=== PATIENT | female | born 2000 | race Two or more races ===

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

== ENCOUNTER 2019-02-22 16:29 | Emergency (ER) | payer BC, OTHER ==
[~2019-02-22] VITALS: Ht 167.6 cm; Wt 63.5 kg
[~2019-02-22 16:29] MED LIST changes: +Flagyl500 MG PO; +Vibramycin100 MG PO
== END 2019-02-22 17:27 | disposition left against medical advice (07) ==
LOC: ER 16:29
DX: Z53.21 Procedure and treatment not carried out due to patient leaving prior to being seen by health care provider (principal)

== ENCOUNTER 2019-02-22 21:58 | Emergency (ER) | payer BC, OTHER ==
[~2019-02-22] VITALS: Ht 167.6 cm; Wt 63.5 kg
[2019-02-22 22:19] LABS: Source, Urine Clean Catch
[2019-02-22 22:29] LABS: Bilirubin, Urine Neg (Neg); Blood, Urine 5+ (Neg); Glucose Qualitative, Urine Neg (Neg); Ketones, Urine 1+ (Neg); Leukocyte Esterase, Urine 2+ (Neg); Nitrite, Urine Neg (Neg); Protein, Urine 3+ (Neg); Specific Gravity, Urine 1.025 (1.003-1.022); Urobilinogen, Urine 1+ (Normal)
[2019-02-22 22:33] LABS: Appearance, Urine Hazy (Clear); Color, Urine Brown (P-Yellow)
[2019-02-22 22:40] LABS: Bacteria Few /hpf; Red Blood Cells, Urine TNTC /hpf (0-2); Squamous Epithelial Cells Few /hpf (Few)
== END 2019-02-22 23:00 | disposition home or self-care (01) ==
LOC: ER 21:58
PROVIDERS: Emergency Medicine
DX: N93.9 Abnormal uterine and vaginal bleeding, unspecified (principal); F17.210 Nicotine dependence, cigarettes, uncomplicated
CPT/HCPCS: 81001; 81025; 87077; 87086; 87186; 99283

== ENCOUNTER → 2019-05-03 | Outpatient (CLI) | payer BC, OTHER | END | disposition home or self-care (01) | LOC: LAB EV 17:54 → LAB SHORT 17:54 | DX: N39.0 Urinary tract infection, site not specified (principal) | CPT/HCPCS: 87077; 87086; 87186 ==

== ENCOUNTER → 2019-09-08 | Outpatient (CLI) | payer OTHER ==
[~2019-09-08] MED LIST changes: +ACET325 PO; +DOCU100; +DOCU100 PO; +IBUP600 PO; +MIRALAX17 GM PO; +OXYC5 PO; +PRENATAL TABLE1 EAC2 PO
[2019-09-08 11:27] LABS: BASOPHILS ABSOLUTE AUTO 0.02 K/mm3 (0.00-0.23); BASOPHILS PERCENT AUTO 0 % (0-2); EOSINOPHILS ABSOLUTE AUTO 0.03 K/mm3 (0.00-0.68); EOSINOPHILS PERCENT AUTO 0 % (0-6); Hematocrit 32.8 % (33.0-51.0); Hemoglobin 11.6 g/dL (11.5-16.0); IMMATURE GRAN ABSOLUTE AUTO 0.04 K/mm3 (0.00-0.10); IMMATURE GRAN PERCENT AUTO 0 % (0-1); LYMPHOCYTES ABSOLUTE AUTO 1.55 K/mm3 (0.84-5.20); LYMPHOCYTES PERCENT AUTO 13 % (21-46); MONOCYTES ABSOLUTE AUTO 0.72 K/mm3 (0.16-1.47); MONOCYTES PERCENT AUTO 6 % (4-13); Mean Corpuscular HGB 29.9 pg (26.0-34.0); Mean Corpuscular HGB Conc 35.4 g/dL (31.5-36.5); Mean Corpuscular Volume 85 fL (80-100); Mean Platelet Volume 10.5 fL (9.1-12.4); NEUTROPHILS ABSOLUTE AUTO 9.47 K/mm3 (1.96-9.15); NEUTROPHILS PERCENT AUTO 80 % (41-73); Platelet Count 264 K/mm3 (150-400); RDW Coefficient Variation 13.5 % (11.7-14.2); RDW Standard Deviation 41.8 fL (35.1-46.3); Red Blood Cell Count 3.88 M/mm3 (3.80-5.20); White Blood Cell Count 11.83 K/mm3 (4.00-11.30)
[2019-09-08 11:31] LABS: Anion Gap 12 mmol/L (6-16); Blood Urea Nitrogen 6 mg/dL (8-24); Bun/Creatinine Ratio 8.8 (12.0-20.0); CO2, Blood 25 mmol/L (21-32); Calcium, Blood 8.8 mg/dL (8.5-10.1); Chloride, Blood 103 mmol/L (98-108); Creatinine, Blood 0.68 mg/dL (0.40-1.00); Glomerular Filtration Rate >60 (60-); Glucose, Blood 79 mg/dL (70-99); Potassium, Blood 3.6 mmol/L (3.5-5.5); Sodium, Blood 140 mmol/L (136-145)
== END ==
LOC: LAB EV 11:22 → LAB SHORT 11:22
PROVIDERS: Emergency Medicine
DX: N76.2 Acute vulvitis (principal); R50.9 Fever, unspecified
CPT/HCPCS: 80048; 85025; 87040

== ENCOUNTER 2019-09-13 10:10 | Observation (INO) | payer OTHER ==
[~2019-09-13] VITALS: Ht 167.6 cm; Wt 72.0 kg
[~2019-09-13 10:10] MED LIST changes: -ACET325 PO; -DOCU100; -DOCU100 PO; -IBUP600 PO; -MIRALAX17 GM PO
[2019-09-13 10:42] LABS: BASOPHILS ABSOLUTE AUTO 0.02 K/mm3 (0.00-0.23); BASOPHILS PERCENT AUTO 0 % (0-2); EOSINOPHILS ABSOLUTE AUTO 0.08 K/mm3 (0.00-0.68); EOSINOPHILS PERCENT AUTO 1 % (0-6); Hematocrit 36.2 % (33.0-51.0); Hemoglobin 11.8 g/dL (11.5-16.0); IMMATURE GRAN ABSOLUTE AUTO 0.06 K/mm3 (0.00-0.10); IMMATURE GRAN PERCENT AUTO 1 % (0-1); LYMPHOCYTES ABSOLUTE AUTO 1.76 K/mm3 (0.84-5.20); LYMPHOCYTES PERCENT AUTO 16 % (21-46); MONOCYTES ABSOLUTE AUTO 0.42 K/mm3 (0.16-1.47); MONOCYTES PERCENT AUTO 4 % (4-13); Mean Corpuscular HGB 28.5 pg (26.0-34.0); Mean Corpuscular HGB Conc 32.6 g/dL (31.5-36.5); Mean Corpuscular Volume 87 fL (80-100); Mean Platelet Volume 9.7 fL (9.1-12.4); NEUTROPHILS ABSOLUTE AUTO 8.97 K/mm3 (1.96-9.15); NEUTROPHILS PERCENT AUTO 79 % (41-73); Platelet Count 372 K/mm3 (150-400); RDW Coefficient Variation 13.2 % (11.7-14.2); RDW Standard Deviation 42.6 fL (35.1-46.3); Red Blood Cell Count 4.14 M/mm3 (3.80-5.20); White Blood Cell Count 11.31 K/mm3 (4.00-11.30)
[2019-09-13 10:58] LABS: Alanine Aminotransfer (ALT/SGP 14 U/L (12-78); Albumin, Blood 2.4 g/dL (3.4-5.0); Albumin/Globulin Ratio 0.6 (0.8-1.8); Alk Phos 93 U/L (50-136); Anion Gap 5 mmol/L (6-16); Aspartate Aminotrans (AST/SGOT 13 U/L (12-37); Bilirubin, Total 0.2 mg/dL (0.1-1.0); Blood Urea Nitrogen 4 mg/dL (8-24); Bun/Creatinine Ratio 8.5 (12.0-20.0); CO2, Blood 26 mmol/L (21-32); Calcium, Blood 8.6 mg/dL (8.5-10.1); Chloride, Blood 108 mmol/L (98-108); Creatinine, Blood 0.47 mg/dL (0.40-1.00); Globulin, Blood 4.2 g/dL (2.2-4.0); Glomerular Filtration Rate >60 (60-); Glucose, Blood 83 mg/dL (70-99); Potassium, Blood 3.9 mmol/L (3.5-5.5); Sodium, Blood 139 mmol/L (136-145); Total Protein, Blood 6.6 g/dL (6.4-8.2)
[2019-09-13 11:05] LABS: International Normalized Ratio 0.94; Prothrombin Time Results 10.1 Sec (9.7-11.5)
--- NOTE | 2019-09-13 18:23 | NUR ---
pt arrived to room 228 from [facility] pt is s/p labia I&D pt has gauze with underware c/d/i pt stated no pain or nausea at this time pt had a spinal can feel touch to her legs but reports that they are numb reg tray ordered for pt
--- NOTE | 2019-09-13 23:22 | NUR ---
I CALLLED PHYSICIAN REGARDING PT C/O INCREASED PAIN AND STATES ULICES 5 MG WILL NOT HELP.PT IS REQUESTING SUBLIMAZE IV. I ALSO NOTIFIED DR VIDAL THAT PHARMACIST REPORTS TORADOL NOT SAFE FOR USE IN 20 WEEK . WELL DIFLUCAN NOT SAFE EITHER. I NOTIFIED DR THAT I HELD DIFLUCAN. ORDERED TO HOLD TORADOL TONIGHT UNTIL ROUNDS IN AM AND CAN BE DISCUSSED THEN.I RECEIVED ORDERS FOR 3 TOTAL DOSES OF SUBLIMAZE.
--- NOTE | 2019-09-14 06:28 | NUR ---
SUMMARY VERB FENTANYL EFFECTIVE FOR PAIN CONTROL.REPOSITIONS WITH ASSIST. REQUIRES MODERATE ASSIST DUE TO FEARS AND NOT WANTING TO MOVE. DISCUSSED IMPORTANCE TO REPOSITION AND MOVE LEGS,DO ANKLE EX AND I.S. Q1-2 W/A. SPINAL SITE CLEAR. NO C/O NAUSEA. FEELS PRESSURE OF CATHETER.ADVISED WHEN SHE IS AMBULATING BUCIO WILL BE DCD. ENC OOB.
[2019-09-14] MEDS ORDERED: ACET325 PO ×2 (13:01)
[2019-09-14] MEDS ORDERED: DOCU100 ×2 (13:01)
[2019-09-14] MEDS ORDERED: DOCU100 PO ×2 (13:02)
[2019-09-14] MEDS ORDERED: MIRALAX17 GM PO ×2 (13:03)
[2019-09-14] MEDS ORDERED: IBUP600 PO ×2 (13:04)
--- NOTE | 2019-09-14 13:29 | NUR ---
DISCHARGED REVIEWED DC INSTRUCTIONS W/PT; VERBALIZED UNDERSTANDING. DC'D IV, CATHETER INTACT. PT LEFT UNIT BY AMBULATION PER HER REQUEST W/POSSESSIONS AND DC INSTRUCTIONS IN HAND.
== END 2019-09-14 13:17 | disposition home or self-care (01) ==
LOC: ER 10:10 → SURS 16:14
PROVIDERS: Physician Assistant; ADMIT Obstetrics & Gynecology
DX: O23.592 Infection of other part of genital tract in pregnancy, second trimester (principal); Z3A.15 15 weeks gestation of pregnancy; O99.612 Diseases of the digestive system complicating pregnancy, second trimester; K59.00 Constipation, unspecified; O23.12 Infections of bladder in pregnancy, second trimester; Z87.891 Personal history of nicotine dependence; Z88.1 Allergy status to other antibiotic agents; Z79.899 Other long term (current) drug therapy
CPT/HCPCS: 36415; 80053; 83605; 85025; 85610; 85730; 86140; 87040; 96361; 96374; 96375; 96376; 99284-25; J0690; J1885; J2250; J2405; J2704; J3010; J7120

== ENCOUNTER 2020-03-08 18:28 | Inpatient (IN) | payer OTHER ==
[~2020-03-08] VITALS: Ht 167.6 cm; Wt 96.4 kg
[~2020-03-08 18:28] MED LIST changes: +ACET325 PO; +DOCU100; +DOCU100 PO; +IBUP600 PO; +MIRALAX17 GM PO
[2020-03-08] MEDS ORDERED: FERSU300 PO (21:04)
[2020-03-08] MEDS ORDERED: PRENATAL TABLE1 EAC2 PO (21:05)
[2020-03-08 21:07] LABS: Influenza A, PCR Negative (NEGATIVE); Influenza B, PCR Negative (NEGATIVE); Resp Syncytial Virus, PCR Negative (NEGATIVE); SARS-Cov-2 (COVID-19) PCR, MMC Negative (NEGATIVE)
[2020-03-08 21:17] LABS: BASOPHILS ABSOLUTE AUTO 0.05 K/mm3 (0.00-0.23); BASOPHILS PERCENT AUTO 0 % (0-2); EOSINOPHILS ABSOLUTE AUTO 0.06 K/mm3 (0.00-0.68); EOSINOPHILS PERCENT AUTO 0 % (0-6); Hematocrit 41.4 % (33.0-51.0); Hemoglobin 13.7 g/dL (11.5-16.0); IMMATURE GRAN ABSOLUTE AUTO 0.06 K/mm3 (0.00-0.10); IMMATURE GRAN PERCENT AUTO 0 % (0-1); LYMPHOCYTES ABSOLUTE AUTO 3.19 K/mm3 (0.84-5.20); LYMPHOCYTES PERCENT AUTO 19 % (21-46); MONOCYTES PERCENT AUTO 5 % (4-13); Mean Corpuscular HGB Conc 33.1 g/dL (31.5-36.5); Mean Corpuscular Volume 85 fL (80-100); Mean Platelet Volume 11.3 fL (9.1-12.4); NEUTROPHILS ABSOLUTE AUTO 12.54 K/mm3 (1.96-9.15); NEUTROPHILS PERCENT AUTO 75 % (41-73); Platelet Count 271 K/mm3 (150-400); RDW Coefficient Variation 16.9 % (11.7-14.2); RDW Standard Deviation 52.4 fL (35.1-46.3)
[2020-03-09 00:16] LABS: U Amphetamine Screen Not Detected; U Barbituate Screen Not Detected; U Benzodiazapine Screen Not Detected; U Buprenorphine Screen Not Detected; U Cannabinoids Screen DETECTED; U Cocaine Screen Not Detected; U Methadone Screen Not Detected; U Methamphetamine Screen Not Detected; U Opiates Screen Not Detected; U Oxycodone Screen Not Detected; U Phencyclidine Screen Not Detected; U Propoxyphene Screen Not Detected
[2020-03-09 01:26] LABS: Source, Urine Catheter
[2020-03-09 01:32] LABS: Appearance, Urine Hazy (Clear); Bilirubin, Urine Neg (Neg); Blood, Urine 4+ (Neg); Color, Urine Yellow (P-Yellow); Glucose Qualitative, Urine Neg (Neg); Ketones, Urine 4+ (Neg); Leukocyte Esterase, Urine 2+ (Neg); Nitrite, Urine Pos (Neg); Protein, Urine 2+ (Neg); Urobilinogen, Urine NORM (Normal)
[2020-03-09 01:42] LABS: Bacteria Mod /hpf; Red Blood Cells, Urine TNTC /hpf (0-2); Squamous Epithelial Cells Rare /hpf (Few); White Blood Cells, Urine 25-50 /hpf (0-5)
--- NOTE | 2020-03-09 18:16 | NUR ---
SHIFT SUMMARY PT HAD EARLY THIS AM, PT REPORTS VOIDING WITH OUT DIFFICULTY, DILIA MEDS AT BS, PT MEDICATED X1 FOR PAIN THIS SHIFT. PT HAS SL IN PLACE THAT FLUSHES WELL. PT HAS NEEDED ASSISTANCE WITH THIS SHIFT AND ALSO REQUESTED SUPPLEMENTATION.
[2020-03-10 05:35] LABS: Hematocrit 33.2 % (33.0-51.0); Hemoglobin 10.6 g/dL (11.5-16.0); Mean Corpuscular HGB 27.6 pg (26.0-34.0); Mean Corpuscular HGB Conc 31.9 g/dL (31.5-36.5); Mean Corpuscular Volume 87 fL (80-100); Mean Platelet Volume 11.7 fL (9.1-12.4); Platelet Count 226 K/mm3 (150-400); RDW Coefficient Variation 17.2 % (11.7-14.2); RDW Standard Deviation 55.1 fL (35.1-46.3); Red Blood Cell Count 3.84 M/mm3 (3.80-5.20); White Blood Cell Count 12.78 K/mm3 (4.00-11.30)
[2020-03-10] MEDS ORDERED: NITR100CA PO ×2 (09:15→09:16)
[2020-03-10] MEDS ORDERED: IBUP800 PO (09:16)
--- NOTE | 2020-03-10 09:30 | NUR ---
D/C HOME WITH BABY
== END 2020-03-10 09:26 | disposition home or self-care (01) | DRG 807 ==
LOC: BC 18:28 → OBS 18:28 → BC 18:36 → OBS 20:17 → BC 20:18
PROVIDERS: ADMIT Advanced Practice Midwife
PROC: 10E0XZZ Delivery of Products of Conception, External Approach (ICD-10-PCS; principal; 2020-03-09)
PROC: 00HU33Z Insertion of Infusion Device into Spinal Canal, Percutaneous Approach (ICD-10-PCS; 2020-03-09)
PROC: 3E0R3BZ Introduction of Anesthetic Agent into Spinal Canal, Percutaneous Approach (ICD-10-PCS; 2020-03-09)
PROC: 0HQ9XZZ Repair Perineum Skin, External Approach (ICD-10-PCS; 2020-03-09)
DX: O48.0 Post-term pregnancy (principal); Z37.0 Single live birth; Z3A.40 40 weeks gestation of pregnancy; O40.3XX0 Polyhydramnios, third trimester, not applicable or unspecified; O99.824 Streptococcus B carrier state complicating childbirth; O70.0 First degree perineal laceration during delivery; Z20.828 Contact with and (suspected) exposure to other viral communicable diseases
CPT/HCPCS: 0241U; 36415; 51702; 81001; 85025; 85027; 86850; 86900; 86901; 87086; J0290; J1885; J2001; J2590; J3010; J7120

== ENCOUNTER 2020-10-24 12:51 | Emergency (ER) | payer OTHER ==
[~2020-10-24] VITALS: Ht 167.6 cm; Wt 98.4 kg
[~2020-10-24 12:51] MED LIST changes: +FERSU300 PO; +IBUP800 PO; +NITR100CA PO
[2020-10-24 13:17] LABS: Source, Urine Clean Catch
[2020-10-24 13:24] LABS: Appearance, Urine Hazy (Clear); Bilirubin, Urine Neg (Neg); Blood, Urine 3+ (Neg); Color, Urine Yellow (P-Yellow); Glucose Qualitative, Urine Neg (Neg); Ketones, Urine Neg (Neg); Leukocyte Esterase, Urine 3+ (Neg); Nitrite, Urine Pos (Neg); Protein, Urine 2+ (Neg); Specific Gravity, Urine 1.025 (1.003-1.022); Urobilinogen, Urine NORM (Normal)
[2020-10-24 13:40] LABS: Bacteria Many /hpf
[2020-10-24 13:41] LABS: Squamous Epithelial Cells Many /hpf (Few)
[2020-10-24 13:42] LABS: Red Blood Cells, Urine 0-2 /hpf (0-2); White Blood Cells, Urine 25-50 /hpf (0-5)
[2020-10-26 01:09] LABS: CHLAMYDIA TRACHOMATIS, NAA Negative (Negative)
== END 2020-10-24 14:02 | disposition home or self-care (01) ==
LOC: ER 12:51
PROVIDERS: Physician Assistant
DX: O23.511 Infections of cervix in pregnancy, first trimester (principal); O99.331 Smoking (tobacco) complicating pregnancy, first trimester; Z3A.01 Less than 8 weeks gestation of pregnancy; F17.200 Nicotine dependence, unspecified, uncomplicated; Z88.1 Allergy status to other antibiotic agents
CPT/HCPCS: 81001; 87077; 87086; 87186; 87491; 87591; 96372; 99283-25; A9270; J0696

== ENCOUNTER 2021-05-27 19:52 | Inpatient (IN) | payer OTHER ==
[~2021-05-27] VITALS: Ht 170.2 cm; Wt 108.8 kg
[2021-05-27 20:57] LABS: BASOPHILS ABSOLUTE AUTO 0.03 K/mm3 (0.00-0.23); BASOPHILS PERCENT AUTO 0 % (0-2); EOSINOPHILS ABSOLUTE AUTO 0.05 K/mm3 (0.00-0.68); EOSINOPHILS PERCENT AUTO 0 % (0-6); Hematocrit 31.4 % (33.0-51.0); Hemoglobin 9.9 g/dL (11.5-16.0); IMMATURE GRAN ABSOLUTE AUTO 0.06 K/mm3 (0.00-0.10); IMMATURE GRAN PERCENT AUTO 1 % (0-1); LYMPHOCYTES PERCENT AUTO 22 % (21-46); MONOCYTES ABSOLUTE AUTO 0.77 K/mm3 (0.16-1.47); MONOCYTES PERCENT AUTO 7 % (4-13); Mean Corpuscular HGB Conc 31.5 g/dL (31.5-36.5); Mean Corpuscular Volume 76 fL (80-100); Mean Platelet Volume 11.5 fL (9.1-12.4); NEUTROPHILS ABSOLUTE AUTO 7.98 K/mm3 (1.96-9.15); NEUTROPHILS PERCENT AUTO 70 % (41-73); Platelet Count 334 K/mm3 (150-400); RDW Standard Deviation 40.8 fL (35.1-46.3); Red Blood Cell Count 4.12 M/mm3 (3.80-5.20); White Blood Cell Count 11.39 K/mm3 (4.00-11.30)
[2021-05-27 21:38] LABS: Influenza A, PCR NEGATIVE (NEGATIVE); Influenza B, PCR NEGATIVE (NEGATIVE); Resp Syncytial Virus, PCR NEGATIVE (NEGATIVE); SARS-Cov-2 (COVID-19) PCR, MMC NEGATIVE (NEGATIVE)
[2021-05-29 06:37] LABS: Hemoglobin 9.3 g/dL (11.5-16.0); Mean Corpuscular HGB 24.2 pg (26.0-34.0); Mean Corpuscular Volume 78 fL (80-100); Mean Platelet Volume 11.5 fL (9.1-12.4); Platelet Count 283 K/mm3 (150-400); RDW Coefficient Variation 15.2 % (11.7-14.2); RDW Standard Deviation 43.4 fL (35.1-46.3); Red Blood Cell Count 3.84 M/mm3 (3.80-5.20); White Blood Cell Count 11.57 K/mm3 (4.00-11.30)
[2021-05-29] MEDS ORDERED: IBUP800 PO (13:14)
--- NOTE | 2021-05-29 13:16 | NUR ---
DISCHARGE INSTRUCTIONS, WRITTEN AND VERBAL, GIVEN TO PATIENT. ANSWERED ALL QUESTIONS AND CONCERNS. FOLLOW UP APPOINTMENT SCHEDULED. WRITTEN PRESCRIPTION HANDED TO PATIENT. IV DISCONTINUED. PT IS DISCHARGED HOME.
== END 2021-05-29 13:50 | disposition home or self-care (01) | DRG 807 ==
LOC: OBS 19:52 → BC 19:53 → OBS 20:03 → BC 20:05
PROVIDERS: Nurse Practitioner Obstetrics & Gynecology; ADMIT Advanced Practice Midwife
PROC: 10E0XZZ Delivery of Products of Conception, External Approach (ICD-10-PCS; principal; 2021-05-28)
PROC: 3E0DXGC Introduction of Other Therapeutic Substance into Mouth and Pharynx, External Approach (ICD-10-PCS; 2021-05-28)
PROC: 3E0R3BZ Introduction of Anesthetic Agent into Spinal Canal, Percutaneous Approach (ICD-10-PCS; 2021-05-28)
PROC: 00HU33Z Insertion of Infusion Device into Spinal Canal, Percutaneous Approach (ICD-10-PCS; 2021-05-28)
PROC: 10907ZC Drainage of Amniotic Fluid, Therapeutic from Products of Conception, Via Natural or Artificial Opening (ICD-10-PCS; 2021-05-28)
DX: O48.0 Post-term pregnancy (principal); Z37.0 Single live birth; Z3A.40 40 weeks gestation of pregnancy; Z20.822 Contact with and (suspected) exposure to COVID-19; O77.0 Labor and delivery complicated by meconium in amniotic fluid; O99.214 Obesity complicating childbirth; E66.9 Obesity, unspecified
CPT/HCPCS: 0241U; 36415; 51702; 85025; 85027; 86850; 86900; 86901; 90715; A9270; J1885; J2001; J2405; J3010; J7120

== ENCOUNTER → 2022-02-14 | Outpatient (CLI) | payer OTHER ==
[~2022-02-14] MED LIST changes: +CYCL10 PO
[2022-02-14 13:28] LABS: Candida species (DNA Probe) Negative (NEGATIVE); G. vaginalis (DNA Probe) Positive (NEGATIVE); T. vaginalis (DNA Probe) Negative (NEGATIVE)
== END | disposition home or self-care (01) ==
LOC: LAB SHORT 08:03
PROVIDERS: Physician Assistant
DX: R10.2 Pelvic and perineal pain (principal)
CPT/HCPCS: 87480; 87510; 87660

== ENCOUNTER → 2022-06-27 | Outpatient (CLI) | payer OTHER | END | disposition home or self-care (01) | LOC: LAB SHORT 12:20 → LAB 12:20 | DX: N39.0 Urinary tract infection, site not specified (principal) | CPT/HCPCS: 87086 ==

== ENCOUNTER 2023-11-12 20:16 | Emergency (ER) | payer OTHER ==
[~2023-11-12] VITALS: Ht 167.6 cm; Wt 127.0 kg
[~2023-11-12 20:16] MED LIST changes: +Amoxicillin500 M1 PO; +Amoxicillin500 MG PO; +CIPHYDOTSU LEFTEAR; +Percocet 5-3251 EACH PO
[2023-11-12 22:00] VITALS: BP 140/70
[2023-11-12] MEDS ORDERED: Trimethoprim/Sulfamethoxazole DS Tab PO ONE (22:20)
[2023-11-12] MEDS ORDERED: Bactrim Ds Tab1 EACH PO (22:24)
== END 2023-11-12 22:30 | disposition home or self-care (01) ==
LOC: ER 20:16
DX: R10.2 Pelvic and perineal pain (principal); Z88.1 Allergy status to other antibiotic agents; Z79.899 Other long term (current) drug therapy
CPT/HCPCS: 99282; A9270

== ENCOUNTER → 2024-09-18 | Outpatient (CLI) | payer OTHER ==
[~2024-09-18] MED LIST changes: +Bactrim Ds Tab1 EACH PO
[2024-09-18 20:31] LABS: Chlamydia Trachomatis Urine NOT DETECTED (NOT DETECT); Neisseria Gonorrhoea Urine NOT DETECTED (NOT DETECT)
== END ==
LOC: LAB SHORT 13:48 → LAB 13:48
PROVIDERS: Family Medicine
DX: R30.0 Dysuria (principal)
CPT/HCPCS: 87491; 87591